=== PATIENT | male | born 1965 | race Two or more races ===

== ENCOUNTER 2023-05-04 10:20 | Emergency (ER) | payer MEDICARE, MEDICAID, SELFPAY ==
[2023-05-04 10:55] VITALS: BP 131/86; PULSE 95; RESP 16; TEMP 36.6; O2SAT 93; BMI 48.3
[2023-05-04 11:16] LABS: MANUAL DIFF FLAG NO
[2023-05-04 11:20] LABS: Basophils Percent Auto 0.3 % (0-2); Eosinophils Absolute Auto 0.3 X10*3/uL (0.0-0.4); Eosinophils Percent Auto 2.6 % (0-4); Hematocrit 47.5 % (42.0-52.0); Hemoglobin 16.3 g/dl (14.0-18.0); Imm Gran Abs Auto 0.05 X10*3/uL (0.00-0.03); Imm Gran Pct Auto 0.4 % (0.0-0.4); Lymphocytes Absolute Auto 1.6 X10*3/uL (1.2-4.9); Lymphocytes Percent Auto 13.4 % (20-40); Mean Corpuscular HGB Conc 34.3 g/dl (31.0-36.0); Mean Corpuscular Hemoglobin 29.5 pg (27.0-33.0); Mean Corpuscular Volume 85.9 fL (80.0-98.0); Mean Platelet Volume 11.7 fL (9.4-12.4); Monocytes Percent Auto 8.7 % (2-11); Neutrophils Absolute Auto 8.9 x10*3/uL (2.0-8.3); Neutrophils Percent Auto 74.6 % (45-73); Platelet Count 213 X10*3/uL (160-400); Red Blood Count 5.53 X10*6/uL (4.60-5.80); Red Cell Distribution Width 12.2 % (11.0-16.0); White Blood Count 11.9 X10*3/uL (4.8-10.8)
[2023-05-04 11:31] LABS: Alanine Aminotransferase 43 U/L (0-40); Albumin Level 4.1 g/dL (3.5-5.0); Alkaline Phosphatase 136 U/L (39-117); Anion Gap 10 (12-20); Aspartate Amino Transferase 29 U/L (5-37); Bilirubin Total 0.8 mg/dL (0.0-1.0); Blood Urea Nitrogen 11 mg/dL (9-16); Calcium 9.5 mg/dL (8.4-10.2); Carbon Dioxide 27 mmol/L (22-29); Chloride 102 mmol/L (96-108); Creatinine Clr Calc Pharmacy 119.8; Estimated Glomerular Filt Rate > 60; Glucose Random 200 mg/dL (60-115); Potassium 3.8 mmol/L (3.3-5.1); Sodium 135 mmol/L (135-145); Total Protein 8.4 g/dL (6.5-8.0)
--- NOTE | 2023-05-04 14:23 | PC.NURSE ---
Pt reports he spoke to his PCP and feels safe/comfortable going home without being seen, does not want to wait. Pt instructed to follow up or come back if he feels worse.
== END 2023-05-04 14:22 | disposition left against medical advice (07) ==
PROVIDERS: Emergency Provider Emergency Medicine; PCP Internal Medicine
DX: L72.9 Follicular cyst of the skin and subcutaneous tissue, unspecified (principal)
CPT/HCPCS: 36415; 80053; 85025; 99281; 99283

== ENCOUNTER 2023-05-26 12:23 | Emergency (ER) | payer MEDICARE, MEDICAID, SELFPAY ==
[2023-05-26 12:35] VITALS: BP 128/88; PULSE 87; RESP 20; TEMP 36.9; O2SAT 95; BMI 47.3
--- NOTE | 2023-05-26 12:35 | ED_ITS ---
HPI - Back Pain/Injury General Chief Complaint: Back Pain/Injury Stated Complaint: Back pain Time Seen by Provider: 05/26/23 12:42 Source: patient Mode of arrival: ambulatory Limitations: no limitations History of Present Illness HPI Narrative: 58 yo male with history of DM, gout, HTN, HLD here with complaints of lower back pain worsened with movement x 4 days. No injury or fall. Has not tried taking any home medications. No radiation of pain into the legs. No numbness/tingling in the legs. No numbness of groin. No bowel/bladder incontinence. No fevers. Has history of previous back injuries. Has not seen his PCP Related Data Previous Rx's ?Medication ?Instructions ?Recorded cyclobenzaprine 10 mg tablet 10 mg PO TID PRN muscle spasm #15 05/26/23 tabs lidocaine 5 % topical patch 1 patch topical DAILY #15 ea 05/26/23 (Lidoderm) Allergies Allergy/AdvReac Type Severity Reaction Status Date / Time No Known Allergies Allergy Verified 05/26/23 12:39 Review of Systems Review of Systems: Yes all other systems are reviewed and are negative Constitutional: Constitutional: Reports no additional constitutional complaints, Denies body ache(s), Denies chills, Denies fever(s), Denies headache(s) and Denies weakness Eyes: Eyes: Reports no additional eye complaints and Denies change in vision ENT: Reports system reviewed and no additional complaints, except as documented, Denies dizziness, Denies headache(s), Denies nasal congestion, Denies nasal discharge and Denies neck pain Cardiovascular: Cardiovascular: Reports no additional cardiovascular complaints, Denies chest pain, Denies leg edema and Denies dyspnea Respiratory: Respiratory: Reports no additional respiratory complaints, Denies cough and Denies dyspnea Gastrointestinal: Gastrointestinal: Reports no additional gastrointestinal complaints, Denies abdominal pain, Denies diarrhea, Denies nausea and Denies vomiting Genitourinary: Genitourinary: Denies urinary incontinence Musculoskeletal: Musculoskeletal: Reports no additional musculoskeletal complaints, Reports back pain, Denies arthralgias, Denies joint swelling, Denies neck pain, Denies numbness and Denies tingling Integumentary/Breasts: Skin/Breast: Reports system reviewed and no additional complaints, except as docu and Denies rash Neurologic: Reports system reviewed and no additional complaints, except as documented, Denies dizziness, Denies headache(s), Denies numbness, Denies tingling and Denies weakness [facility] Past Medical History Attestation statement: The following information was validated with the patient. Source: old records reviewed and nursing notes reviewed Physical Exam Vital Signs: Vital Signs: Last Vital Signs Temp 98.4 F 05/26/23 12:35 Pulse 87 05/26/23 12:35 Resp 20 05/26/23 12:35 BP 128/88 05/26/23 12:35 Pulse Ox 95 05/26/23 12:35 O2 Del Method Room Air 05/26/23 12:35 BMI result Body Mass Index 47.3 Const: General: cooperative, healthy appearing, comfortable and no acute distress Orientation/consciousness: patient oriented x3 Limitations: no limitations HEENT: Head: Yes normal to inspection Ears: hearing grossly normal bilaterally General nose exam: Normal external nose present Face and sinus: Yes normal facial exam Mouth: Normal oral and palatal mucosa present Throat: Yes posterior oropharynx normal Eyes: General: appearance normal, both eyes and all related structures Pupils: Equal, round and reactive pupils present Neck: Neck: Yes normal visual inspection Chest: Chest palpation & inspection: normal inspection of the chest Resp: Effort & Inspection: normal respiratory effort Auscultation: clear to auscultation bilaterally Cardio: Rate: regular rate Rhythm: regular rhythm Peripheral pulses: Per ipheral pulses 2+ throughout GI: Inspection: Yes normal to inspection Palpation (GI): Soft to palpation and nontender Auscultation: normal bowel sounds Back/Spine/Pelvis: Thoracic/Lumbar Spine: thoracic and lumbar spine normal to inspection Skin: General skin exam: no rashes or lesions noted Neuro: General: patient oriented x3, moves all extremities, no focal motor deficits and normal sensation to monofilament Cranial nerves: Yes Equal, round and reactive pupils present Cognition (Neuro): normal cognition Gait exam (Neuro): Normal gait present Motor exam (neuro): 5/5 motor strength present throughout Sensory Exam: Normal double simultaneous stimulation for sensation Deep tendon reflexes (DTR's): Right patellar reflex intensity grade: 2+ and Left patellar reflex intensity grade: 2+ Extrem: General: Yes normal to inspection, Yes no pedal edema and Yes no calf tenderness Medical Decision Making Medical Decision Making MDM Narrative: 58 yo male with history of DM, gout, HTN, HLD here with complaints of lower back pain worsened with movement x 4 days. No injury or fall. Has not tried taking any home medications. No radiation of pain into the legs. No numbness/tingling in the legs. No numbness of groin. No bowel/bladder incontinence. No fevers. Has history of previous back injuries. Has not seen his PCP Normal neuro exam with no focal deficits or red flag symptoms Received Toradol here in the ER. Has ibuprofen 600mg at home. Recommend he take this in addition to flexeril, lidoderm and f/u with his PCP outpatient. Reviewed worrisome signs and symptoms of when to return to the emergency room. Comfortable plan for discharge home Differential Diagnosis Differential Diagnoses: The differential diagnosis associated with the presentation includes No reports of injury or trauma to suggest fracture No history of immunocompromised state, IV drug abuse or red flag symptoms or neurological deficits to suggest cord compression, cauda equina, malignancy, epidural abscess Gradual onset low suspicion for ACS, AAA, pyelo, renal colic Admission/Observation Consideration of admission/observation: Escalation of care including admission/observation considered No neurological deficits or red flag symptoms suggest need for emergent MRI and/or neurosurgery consultation and transfer or hospitalization Tests considered The following testing was considered but not selected: No neurological deficits or red flag symptoms suggest need for emergent MRI Prescription Management I considered prescription management with: Pain Medication Discharge Plan Discharge Clinical Impression: Back pain Patient Disposition: Home, Self-Care Instructions: Back Pain (ED) Additional Instructions: Ibuprofen which you have at home every 6 hours as needed Heat or ice to the area Gentle stretching No heavy lifting or bending Follow-up with your primary care doctor Prescriptions: New cyclobenzaprine 10 mg tablet 10 mg PO TID PRN (Reason: muscle spasm) Qty: 15 0RF lidocaine [Lidoderm] 5 % adhesive patch,medicated 1 patch topical DAILY Qty: 15 0RF Rx Instructions: leave on most painful area for up to 12 hrs Referrals: Eliezer Pastrana III, MD [Primary Care Provider] - 1 week Print Language: Senegalese
[2023-05-26] MEDS: Ketorolac Tromethamine 30 MG/ML VIAL IM (12:45)
[2023-05-26 12:52] VITALS: BP 128/88; PULSE 87; RESP 20; TEMP 36.9; O2SAT 95
--- NOTE | 2023-05-26 12:52 | PC.NURSE ---
pt medicated per APR for 10 R lower back pain.
== END 2023-05-26 12:58 | disposition home or self-care (01) ==
LOC: HO.ED 12:52
PROVIDERS: Emergency Provider Emergency Medicine; PCP Internal Medicine
DX: M54.50 Low back pain, unspecified (principal); E11.9 Type 2 diabetes mellitus without complications; I10 Essential (primary) hypertension; E78.5 Hyperlipidemia, unspecified
CPT/HCPCS: 96372; 99283; 99284; J1885

== ENCOUNTER 2023-07-09 10:27 | Emergency (ER) | payer MEDICARE, MEDICAID, SELFPAY ==
[2023-07-09 11:13] VITALS: BP 115/77; PULSE 84; RESP 20; TEMP 36.9; O2SAT 95; BMI 47.5
--- NOTE | 2023-07-09 14:10 | ED_ITS ---
HPI - Back Pain/Injury General Chief Complaint: Back Pain/Injury Stated Complaint: back pain Time Seen by Provider: 07/09/23 13:53 Source: patient Mode of arrival: ambulatory Limitations: no limitations History of Present Illness ED Provider: Zander Juarez PA-C HPI Narrative: 58 yo male with history of morbid obesity presents to the ER for evaluation of lower back pain for the last 4 days after he bent down to poultry picker a heavy object on the ground. He thinks he pulled a muscle. The pain is worse w/ movement, vicente when he tries to get up out of bed. no radiation of the pain, it is located across his entire lower back and waxes/wanes w/ movement. no urinary symptoms. hx similar presentation that improved with a shot from the ER. MD elicited complaint: back pain and back injury Pertinent past history: prior back pain Onset (ago): day(s) (4) Timing: intermittent Severity: moderate Similar Symptoms Previously: Yes Quality: aching and spasming Location: right lower back and left lower back Radiation: none Exacerbating factors: movement Relieving factors: immobilization and supine Context: while lifting, turning/twisting and bending Associated symptoms: denies other symptoms Work related injury: No Related Data Previous Rx's ?Medication ?Instructions ?Recorded cyclobenzaprine 10 mg tablet 10 mg PO TID PRN muscle spasm #15 05/26/23 tabs lidocaine 5 % topical patch 1 patch topical DAILY #15 ea 05/26/23 (Lidoderm) cyclobenzaprine 10 mg tablet 10 mg PO TID PRN muscle spasm #10 07/09/23 tabs ibuprofen 600 mg tablet 600 mg PO Q8H PRN pain #14 tabs 07/09/23 lidocaine 5 % topical patch 1 patch topical DAILY #15 ea 07/09/23 Allergies Allergy/AdvReac Type Severity Reaction Status Date / Time No Known Allergies Allergy Verified 07/09/23 11:14 Review of Systems Review of Systems: Yes all other systems are reviewed and are negative [facility] Social History Social History Advance Directives: No Advance Directives Information Provided: No Physical Exam Vital Signs: Vital Signs: Last Vital Signs Temp 98.1 F 07/09/23 15:08 Pulse 86 07/09/23 15:08 Resp 18 07/09/23 15:08 BP 120/65 07/09/23 15:08 Pulse Ox 94 07/09/23 15:08 O2 Del Method Room Air 07/09/23 15:08 BMI result Body Mass Index 47.5 Appearance: Alert. Oriented X3. No acute distress. HEENT: normal external inspection Neck: Normal inspection. Neck supple. CVS: Normal heart rate and rhythm. Pulses normal. Respiratory: No respiratory distress. Breath sounds normal. Abdomen: Obese, soft and nontender. +BS x4 Back: normal inspection. tender soft tissues of the middle and lower lumbar area with palpable spasm. no midline tenderness. no cva tenderness Skin: Skin warm and dry. Normal skin color. Normal skin turgor. No rashes. Extremities: No lower extremity edema. No joint swelling. Neuro/psych: Oriented X 3. No motor deficit. No sensory deficit. CN II-XII intact. Normal speech and cognition. steady gait. Medications Administered Discontinued Medications Generic Name Dose Route Start Last Admin Trade Name Freq PRN Reason Stop Dose Admin Ketorolac Tromethamine 30 mg 07/09/23 14:50 07/09/23 15:00 Ketorolac Tromethamine 30 Mg/Ml Vial IM 07/09/23 14:51 30 mg ONCE ONE Administration Medical Decision Making Medical Decision Making MDM Narrative: 58 yo male w/ hx morbid obesity, prior msk back pain presenting with LMP after heavy lifting. no radiation into the legs. low suspicion for disc herniation or cord compression. no red flag sxs of LBP. no need for x-ray today, no trauma. will treat for muscle strain/spasm and have him f/u with PCP as this is a recur rent issue for him. stable for d/c home. patient agree w/ plan and all questions were answered. Differential Diagnosis Differential Diagnoses: The differential diagnosis associated with the presentation includes Inflammatory disorders, malignancy, trauma, osteoporosis, nerve root compression, radiculopathy, plexopathy, degenerative disc disease, disc herniation, spinal stenosis, sacroiliac joint dysfunction, facet joint injury, and less likely infection?like abscess or diskitis External Record Review External record reviewed: Outpatient record and Prior outpatient labs Tests considered The following testing was considered but not selected: xray lumbar spine considered, no midline tenderness or trauma Prescription Management I considered prescription management with: Pain Medication Chronic Conditions Patient?s care impacted by: Other (morbid obesity) Critical Care Time Critical Care Time Critical Care Time: No Discharge Plan Discharge Clinical Impression: Strain of lumbar region Qualifiers: Encounter type: initial encounter Qualified Code(s): S39.012A - Strain of muscle, fascia and tendon of lower back, initial encounter Patient Disposition: Home, Self-Care Instructions: Low Back Strain (ED), Lower Back Exercises (ED) Additional Instructions: Your pain is most likely due to muscle strain and spasm. No bending, lifting or twisting. Use ice several times per day for 20 minutes at a time for the next 48 hours and then change to heat. Take medications as prescribed to help with pain and discomfort. Follow up with your Primary Care Doctor this week. If your pain worsens, if you develop new numbness, tingling, weakness, loss of function or incontinence call 911 or come back to the ER right away for evaluation. Prescriptions: New cyclobenzaprine 10 mg tablet 10 mg PO TID PRN (Reason: muscle spasm) Qty: 10 0RF ibuprofen 600 mg tablet 600 mg PO Q8H PRN (Reason: pain) Qty: 14 0RF lidocaine 5 % adhesive patch,medicated 1 patch topical DAILY Qty: 15 0RF Rx Instructions: leave on most painful area for up to 12 hrs No Action cyclobenzaprine 10 mg tablet 10 mg PO TID PRN (Reason: muscle spasm) Qty: 15 0RF lidocaine [Lidoderm] 5 % adhesive patch,medicated 1 patch topical DAILY Qty: 15 0RF Rx Instructions: leave on most painful area for up to 12 hrs Referrals: Eliezer Pastrana III, MD [Primary Care Provider] - Interventions: ED Discharge Assessment Last Done: 07/09/23 15:08 Discharge Date/Time: 07/09/23 15:09 Print Language: Jordanian
[2023-07-09 14:54] VITALS: BP 120/65; PULSE 86; RESP 18; TEMP 36.7; O2SAT 94
[2023-07-09] MEDS: Ketorolac Tromethamine 30 MG/ML VIAL IM (15:00)
[2023-07-09 15:08] VITALS: BP 120/65; PULSE 86; RESP 18; TEMP 36.7; O2SAT 94
== END 2023-07-09 15:09 | disposition home or self-care (01) ==
PROVIDERS: Emergency Provider Emergency Medicine; PCP Internal Medicine
DX: S39.012A Strain of muscle, fascia and tendon of lower back, initial encounter (principal); X50.0XXA Overexertion from strenuous movement or load, initial encounter; Y93.9 Activity, unspecified; Y92.9 Unspecified place or not applicable; Y99.9 Unspecified external cause status
CPT/HCPCS: 96372; 99283; 99284; J1885

== ENCOUNTER 2023-07-26 10:18 | Emergency (ER) | payer MEDICARE, SELFPAY ==
--- NOTE | ~2023-07-26 | CT_ITS ---
EXAMINATION: CT ORBIT WITH CONTRAST CLINICAL INFORMATION: Swelling. Assess for cellulitis. COMPARISON: There are no prior studies available for comparison. TECHNIQUE: CT scan of the orbits was obtained in the axial plane following the intravenous administration of 85 mL Omnipaque 350. The data was postprocessed at the x ray technologist workstation with generation of coronal and sagittal reformatted images. DLP: 296 mGy-cm. FINDINGS: Both lacrimal glands are prominent, larger on the right. No discrete fluid collections are noted on uterine side. There is some mass effect on the bilateral lateral rectus muscles anteriorly. The globes are symmetric. The lenses are in normal position. There is bilateral proptosis The other extraocular muscles are symmetric and normal in appearance. The retrobulbar fat is maintained. The optic nerve sheath complexes appear unremarkable. There is no abnormal enhancement noted following intravenous contrast administration. The superior ophthalmic veins are normal in appearance. The cavernous sinuses, Meckel's caves, the optic chiasm and retrochiasmatic optic tracts are unremarkable. The pituitary fossa appears normal. The parotid glands are moderately prominent bilaterally. The mastoid air cells and the paranasal sinuses are well-aerated. CT/CT orbit BI w IV con IMPRESSION: 1. There is prominence of the lacrimal glands bilaterally, larger on the right. There is no discrete fluid collection. There is some mass effect on the lateral rectus muscles. The parotid glands are prominent bilaterally. There is bilateral proptosis. These findings are nonspecific, but may be consistent with inflammatory changes such as Sjogren's syndrome or sarcoidosis. Lymphoproliferative changes cannot be excluded. 2. The globes and the retrobulbar structures appear normal. 3. The visualized intracranial structures are unremarkable.
[2023-07-26 10:49] VITALS: BP 129/80; PULSE 100; RESP 16; TEMP 36; O2SAT 95; BMI 47.3
[2023-07-26] MEDS: Fluorescein Sodium STRIP 1 STRIP EYE-BOTH (11:15)
[2023-07-26] MEDS: Tetracaine HCl/PF 0.5% Oph Sol 4 ML DROPS 1 DROP EYE-BOTH (11:15)
--- NOTE | 2023-07-26 11:16 | PC.NURSE ---
visual acuity performed, provider to administer medications
[2023-07-26 12:00] VITALS: BP 138/78; PULSE 92; RESP 14; TEMP 36.4; O2SAT 93
[2023-07-26] MEDS: 0.9 % Sodium Chloride 1,000 ML 999 ML IV (12:06)
[2023-07-26 12:11] LABS: MANUAL DIFF FLAG NO
[2023-07-26 12:12] LABS: Basophils Percent Auto 0.3 % (0-2); Eosinophils Absolute Auto 0.4 X10*3/uL (0.0-0.4); Eosinophils Percent Auto 3.1 % (0-4); Hematocrit 42.4 % (42.0-52.0); Hemoglobin 14.1 g/dl (14.0-18.0); Imm Gran Abs Auto 0.07 X10*3/uL (0.00-0.03); Imm Gran Pct Auto 0.6 % (0.0-0.4); Lymphocytes Absolute Auto 1.4 X10*3/uL (1.2-4.9); Mean Corpuscular HGB Conc 33.3 g/dl (31.0-36.0); Mean Corpuscular Hemoglobin 28.5 pg (27.0-33.0); Mean Corpuscular Volume 85.7 fL (80.0-98.0); Mean Platelet Volume 11.5 fL (9.4-12.4); Monocytes Absolute Auto 1.1 X10*3/uL (0.1-1.2); Monocytes Percent Auto 8.5 % (2-11); Neutrophils Absolute Auto 9.7 x10*3/uL (2.0-8.3); Neutrophils Percent Auto 76.5 % (45-73); Platelet Count 275 X10*3/uL (160-400); Red Blood Count 4.95 X10*6/uL (4.60-5.80); White Blood Count 12.7 X10*3/uL (4.8-10.8)
--- NOTE | 2023-07-26 12:15 | PC.NURSE ---
patient a&ox3, iv inserted, labs drawn, IVF hung per order, pt to go to CT scan, will continue to monitor
[2023-07-26 12:41] LABS: Alanine Aminotransferase 27 U/L (0-40); Albumin Level 3.6 g/dL (3.5-5.0); Alkaline Phosphatase 122 U/L (39-117); Anion Gap 13 (12-20); Aspartate Amino Transferase 23 U/L (5-37); Bilirubin Total 0.4 mg/dL (0.0-1.0); Blood Urea Nitrogen 18 mg/dL (9-16); Calcium 9.5 mg/dL (8.4-10.2); Carbon Dioxide 25 mmol/L (22-29); Chloride 102 mmol/L (96-108); Creatinine Clr Calc Pharmacy 139.7; Estimated Glomerular Filt Rate > 60; Glucose Random 194 mg/dL (60-115); Magnesium 1.9 mg/dL (1.6-2.6); Sodium 136 mmol/L (135-145); Total Protein 7.7 g/dL (6.5-8.0)
[2023-07-26 13:00] LABS: TSH reflex Free T4 1.02 uIU/mL (0.32-4.0)
[2023-07-26] MEDS: iohexoL 350 MG/ML 100 ML INFUS..BTL IV (13:15)
[2023-07-26 14:00] VITALS: BP 145/81; PULSE 95; TEMP 36.7; O2SAT 93
--- NOTE | 2023-07-26 14:15 | ED.EYEPROB ---
HPI - Eye Problem General Chief complaint: Eye Problems Stated complaint: Swelling both eyes Time Seen by Provider: 07/26/23 11:07 Source: patient Mode of arrival: ambulatory Limitations: no limitations History of Present Illness ED Provider: CONCHA LOCO PA-C HPI Narrative: 58-year-old male with pmhx significant for hypertension, type 2 diabetes controlled with medication, and GERD presents to the ED today for evaluation of bilateral eye redness/swelling x4 weeks. Patient is saw his PCP approximately 1 month ago for this and was prescribed azelastine and erythromycin x1 week which he has been using for 4 weeks now. Reports increasing redness and burning sensation to eyes. Reports discomfort however no pain. He does not wear corrective lenses. He reports following up with his PCP yesterday who advised he come to the ED to rule out orbital cellulitis. Denies trauma or injury to the eyes. Denies foreign body sensation however does admit to gritty feeling. Denies fevers, chills, vision changes, pain with eye movements, eye pain. Related Data Previous Rx's ?Medication ?Instructions ?Recorded cyclobenzaprine 10 mg tablet 10 mg PO TID PRN muscle spasm #15 05/26/23 tabs lidocaine 5 % topical patch 1 patch topical DAILY #15 ea 05/26/23 (Lidoderm) cyclobenzaprine 10 mg tablet 10 mg PO TID PRN muscle spasm #10 07/09/23 tabs ibuprofen 600 mg tablet 600 mg PO Q8H PRN pain #14 tabs 07/09/23 lidocaine 5 % topical patch 1 patch topical DAILY #15 ea 07/09/23 prednisone 20 mg tablet 20 mg PO DAILY 5 days #5 tabs 07/26/23 Allergies Allergy/AdvReac Type Severity Reaction Status Date / Time No Known Allergies Allergy Verified 07/26/23 10:53 Review of Systems Review of Systems: Constitutional: No fever, chills, fatigue, night sweats, weight changes ENT/Mouth: No ear pain, hearing loss, nasal congestion, sinus pain, rhinorrhea, sore throat Eyes: No eye pain, vision changes, discharge, +eye redness, +eye swelling Cardio: No chest pain, palpitations, SPENCER, orthopnea, peripheral edema Pulm: No SOB, cough, sputum, wheezing, dyspnea, hemoptysis GI: No nausea, vomiting, hematemesis, abdominal pain, diarrhea, constipation, hematochezia, melena : No irregular bleeding, dysuria, frequency, urgency, hesitancy, hematuria, flank pain, urinary flow changes, urinary incontinence or retention MSK: No back pain, neck pain, joint pain, myalgias Skin: No lesions, rashes Neuro: No weakness, numbness, paresthesias, LOC, dizziness, headache Psych: No anxiety/panic, depression, SI/HI, AH/VH All other systems reviewed and are negative. [facility], [facility] Past Medical History Attestation statement: The following information was validated with the patient. Source: old records reviewed and nursing notes reviewed Social History Social History Advance Directives: No Advance Directives Information Provided: Yes Physical Exam Vital Signs: Vital Signs: Last Vital Signs Temp 98.0 F 07/26/23 15:27 Pulse 94 07/26/23 15:27 Resp 16 07/26/23 15:27 BP 141/76 H 07/26/23 15:27 Pulse Ox 94 07/26/23 15:27 O2 Del Method Room Air 07/26/23 15:27 BMI result Body Mass Index 47.3 Vital signs stable Const: General: cooperative, healthy appearing, comfortable and no acute distress Nutritional Appearance: obese Orientation/consciousness: patient oriented x3 Limitations: no limitations HEENT: Head: Yes normal to inspection Eyes: Other: + please refer to photos below. Patient does not wear corrective lenses. Visual acuity OD 20/50. Visual acuity OS 20/70. Bilateral 20/50. + injected conjunctiva bilaterally. Excessive tearing. No obvious foreign body or abrasion. No hyphema. Felicia sign. On tetracaine/fluorescein examination, no reuptake to indicate abrasion or foreign body. + IOP OD 16. IOP OS 16. Mild bilateral proptosis. Slight discomfort with EOMs intact. Neck: Neck: Yes normal visual inspection, Yes full ROM, Yes no lymphadenopathy and Yes no meningeal signs Resp: Effort & Inspection: normal respiratory effort and able to speak in complete sentences Auscultation: clear to auscultation bilaterally Cardio: Rate: regular rate Rhythm: regular rhythm Skin: General skin exam: no rashes or lesions noted Neuro: General: patient oriented x3, gait normal, no meningeal signs and no focal motor deficits Course Course Course Narrative: 1415-- CBC with slight leukocytosis to 12.7, no left shift. No anemia. H&H stable. Chemistry without acute electrolyte abnormality requiring intervention. BUN slightly elevated at 18, creatinine WNL. Patient receiving IV fluids. Random glucose 194 which is around patient's baseline when compared to priors. Alk phos elevated to 122, baseline when compared to priors. TSH WNL. > CT orbit pending 1450-- CT orbits does not demonstrate evidence of pre-orbital or orbital cellulitis. it does show findings that may be consistent with possible inflammatory process such as sjogrens vs sarcoidosis. I did discuss these findings with my attending Dr. Lopez. Patient likely having rebound reaction. Will cover for possible inflammatory conditions with 5 day course of prednisone. Low dose sent to pharmacy as patient has diabetes. i advised him to monitor his blood sugar closely at home while taking this medication as this can increased glucose. he verbalizes understanding. i advised patient to stop the erythromycin and azelastine eye drops as these are likely worsening his symptoms. will provide patient referral to ophthalmology for follow up. Patient has remained stable throughout ED visit today. Discussed worrisome signs and symptoms and when to return to the ED. All questions answered at this time. Patient is agreeable with disposition and stable for discharge. Medications Administered Discontinued Medications Generic Name Dose Route Start Last Admin Trade Name Ludmila PRN Reason Stop Dose Admin Fluorescein Sodium 1 strip 07/26/23 11:07 07/26/23 11:15 Fluorescein Sodium Strip EYE-BOTH 07/26/23 11:08 1 strip ONCE ONE Administration Sodium Chloride 1,000 mls @ 999 mls/hr 07/26/23 11:45 07/26/23 13:07 Ns IV 07/26/23 12:45 Infused .Q1H1M FAHAD Infusion Iohexol 100 ml 07/26/23 13:15 07/26/23 13:15 Iohexol 350 Mg/Ml 100 Ml Infus..Btl IV 07/26/23 13:16 85 ml ONCE ONE Administration Tetracaine HCl 1 drop 07/26/23 11:07 07/26/23 11:15 Tetracaine Hcl/Pf 0.5% Oph Mary 4 Ml Drops EYE-BOTH 07/26/23 11:08 1 drop ONCE ONE Administration Medical Decision Making Medical Decision Making MDM Narrative: 58-year-old male with pmhx significant for hypertension, type 2 diabetes controlled with medication, and GERD presents to the ED today for evaluation of bilateral eye redness/swelling x4 weeks. Vital signs stable. Afebrile. Patient does not wear corrective lenses. Visual acuity OD 20/50. Visual acuity OS 20/70. Bilateral 20/50. injected conjunctiva bilaterally. Excessive tearing. No obvious foreign body or abrasion. No hyphema. Felicia sign. On tetracaine/fluorescein examination, no re-uptake to indicate abrasion or foreign body. IOP OD 16. IOP OS 16. Mild bilateral proptosis. Slight discomfort with EOMs intact. no entrapment. noted swelling to bilateral upper eye lids. no overlying skin changes. Differential diagnosis includes viral vs allergic conjunctivitis, bacterial conjunctivitis, rebound conjunctivitis. lower suspicion for corneal abrasion, corneal ulcer, corneal fb. unlikely glaucoma, globe rupture, blow out fracture, pre-orbital/ orbital cellulitls. Plan for labs, CT, re-evaluation. Differential Diagnosis Differential Diagnoses: The differential diagnosis associated with the presentation includes as above Admission/Observation Not indicated. Lab Data MDM Lab Attestation statement: I reviewed the patient's lab results. as above. 07/26/23 12:03 07/26/23 12:03 Labs: Lab Results 07/26/23 Range/Units 12:03 WBC 12.7 H (4.8-10.8) X10*3/uL RBC 4.95 (4.60-5.80) X10*6/uL Hgb 14.1 (14.0-18.0) g/dl Hct 42.4 (42.0-52.0) % MCV 85.7 (80.0-98.0) fL MCH 28.5 (27.0-33.0) pg MCHC 33.3 (31.0-36.0) g/dl RDW 12.0 (11.0-16.0) % Plt Count 275 D (160-400) X10*3/uL MPV 11.5 (9.4-12.4) fL Immature Gran % (Auto) 0.6 H (0.0-0.4) % Neut % (Auto) 76.5 H (45-73) % Lymph % (Auto) 11.0 L (20-40) % [place] % (Auto) 8.5 (2-11) % Eos % (Auto) 3.1 (0-4) % Baso % (Auto) 0.3 (0-2) % Lymph # (Auto) 1.4 (1.2-4.9) X10*3/uL [place] # (Auto) 1.1 (0.1-1.2) X10*3/uL Eos # (Auto) 0.4 (0.0-0.4) X10*3/uL Baso # (Auto) 0.0 (0.0-0.2) X10*3/uL Abs Immat Gran (auto) 0.07 H (0.00-0.03) X10*3/uL Absolute Neuts (auto) 9.7 H (2.0-8.3) x10*3/uL Absolute Nucleated RBC 0.000 (0.0-0.012) X10*3/uL Nucleated RBC % (auto) 0.0 (0.0-0.2) /100WBC Sodium 136 (135-145) mmol/L Potassium 4.0 (3.3-5.1) mmol/L Chloride 102 (96-108) mmol/L Carbon Dioxide 25 (22-29) mmol/L Anion Gap 13 (12-20) BUN 18 H (9-16) mg/dL Creatinine 0.88 (0.5-1.4) mg/dL Estim Creat Clear Calc 139.7 Estimated GFR > 60 Random Glucose 194 H (60-115) mg/dL Calcium 9.5 (8.4-10.2) mg/dL Magnesium 1.9 (1.6-2.6) mg/dL Total Bilirubin 0.4 (0.0-1.0) mg/dL AST 23 (5-37) U/L ALT 27 (0-40) U/L Alkaline Phosphatase 122 H (39-117) U/L Total Protein 7.7 (6.5-8.0) g/dL Albumin 3.6 (3.5-5.0) g/dL TSH 1.02 (0.32-4.0) uIU/mL Independent Interpretation I performed an independent interpretation of an: CT Scan Interpretation: CT scan orbit showing enlarged lacrimal glands, agree with radiologist's interpretation Radiology Impression Discussion of test interpretation with radiology: I have reviewed the radiologist's reading. Radiologist Impression: EXAMINATION: CT ORBIT WITH CONTRAST CLINICAL INFORMATION: Swelling. Assess for cellulitis. COMPARISON: There are no prior studies available for comparison. TECHNIQUE: CT scan of the orbits was obtained in the axial plane following the intravenous administration of 85 mL Omnipaque 350. The data was postprocessed at the certified neurodiagnostic technologist workstation with generation of coronal and sagittal reformatted images. DLP: 296 mGy-cm. FINDINGS: Both lacrimal glands are prominent, larger on the right. No discrete fluid collections are noted on uterine side. There is some mass effect on the bilateral lateral rectus muscles anteriorly. The globes are symmetric. The lenses are in normal position. There is bilateral proptosis The other extraocular muscles are symmetric and normal in appearance. The retrobulbar fat is maintained. The optic nerve sheath complexes appear unremarkable. There is no abnormal enhancement noted following intravenous contrast administration. The superior ophthalmic veins are normal in appearance. The cavernous sinuses, Meckel's caves, the optic chiasm and retrochiasmatic optic tracts are unremarkable. The pituitary fossa appears normal. The parotid glands are moderately prominent bilaterally. The mastoid air cells and the paranasal sinuses are well-aerated. CT/CT orbit BI w IV con IMPRESSION: 1. There is prominence of the lacrimal glands bilaterally, larger on the right. There is no discrete fluid collection. There is some mass effect on the lateral rectus muscles. The parotid glands are prominent bilaterally. There is bilateral proptosis. These findings are nonspecific, but may be consistent with inflammatory changes such as Sjogren's syndrome or sarcoidosis. Lymphoproliferative changes cannot be excluded. 2. The globes and the retrobulbar structures appear normal. 3. The visualized intracranial structures are unremarkable. External Record Review External record reviewed: Inpatient record Prescription Management I considered prescription management with: Other (Prednisone) Chronic Conditions Patient?s care impacted by: Diabetes Social Determinants Patient?s care significantly limited by Social Determinants of Health including: Other Social Determinant of Health Critical Care Time Critical Care Time Critical Care Time: No Discharge Plan Discharge Clinical Impression: Conjunctivitis Patient Disposition: Home, Self-Care Additional Instructions: Your lab work today is reassuring. All CT scan findings were discussed with you. There is no sign of orbital infection. STOP USING THE ERYTHROMYCIN AND AZELASTINE DROPS. Prednisone is a steroid that has been sent to your pharmacy. Take this over the next 5 days as prescribed. You are diabetic. Please monitor your sugars at home. If you find that your sugars are becoming more elevated, please discontinue prednisone use. Follow up with your PCP as scheduled. You have also been provided with an geodesist (eye doctor). Please call them to make an appointment. They will not call you. Return with new or worsening symptoms. In the case of an emergency call 911. Prescriptions: New prednisone 20 mg tablet 20 mg PO DAILY 5 Days Qty: 5 0RF No Action cyclobenzaprine 10 mg tablet 10 mg PO TID PRN (Reason: muscle spasm) Qty: 15 0RF lidocaine [Lidoderm] 5 % adhesive patch,medicated 1 patch topical DAILY Qty: 15 0RF Rx Instructions: leave on most painful area for up to 12 hrs cyclobenzaprine 10 mg tablet 10 mg PO TID PRN (Reason: muscle spasm) Qty: 10 0RF ibuprofen 600 mg tablet 600 mg PO Q8H PRN (Reason: pain) Qty: 14 0RF lidocaine 5 % adhesive patch,medicated 1 patch topical DAILY Qty: 15 0RF Rx Instructions: leave on most painful area for up to 12 hrs Referrals: Eliezer Pastrana III, MD [Primary Care Provider] - Eddie Bridges [Physician] - Interventions: ED Discharge Assessment Last Done: 07/26/23 15:27 Discharge Date/Time: 07/26/23 15:28 Print Language: Amharic
[2023-07-26 15:27] VITALS: BP 141/76; PULSE 94; RESP 16; TEMP 36.7; O2SAT 94
== END 2023-07-26 15:28 | disposition home or self-care (01) ==
PROVIDERS: Physician Assistant Medical; Emergency Provider Emergency Medicine; PCP Internal Medicine
DX: H10.9 Unspecified conjunctivitis (principal); H57.13 Ocular pain, bilateral; E11.9 Type 2 diabetes mellitus without complications; I10 Essential (primary) hypertension; Z79.899 Other long term (current) drug therapy
CPT/HCPCS: 36415; 70481; 80053; 83735; 84443; 85025; 96360; 99284; Q9967

== ENCOUNTER 2023-08-05 09:59 | Emergency (ER) | payer MEDICARE, SELFPAY ==
[2023-08-05 10:15] VITALS: BP 143/86; PULSE 93; RESP 18; TEMP 36.9; O2SAT 98; BMI 48.0
--- NOTE | 2023-08-05 10:22 | ED_ITS ---
HPI - General Adult General Chief complaint: Allergic Reaction Stated complaint: Swollen eyes Time Seen by Provider: 08/05/23 10:21 Source: patient and RN notes reviewed Mode of arrival: ambulatory Limitations: no limitations History of Present Illness ED Provider: Rajani Cardona PA-C HPI narrative: This is a 58-year-old male, with a past medical history of hypertension, type 2 diabetes, and GERD, who presents to the emergency department with complaints of bilateral eyelid swelling. Patient was seen here on July 25 for similar symptoms. Patient saw his primary care physician and june was prescribed as azalastine and erythromycin for 1 week however continue to use that for 4 weeks. He was then seen in the ER on July 25 due to increased redness, burning sensation to his eyes. He had labs as well as a CT orbit due to concern for periorbital or orbital cellulitis. The CT showed findings with a possible inflammatory process such as Sjogren's versus sarcoidosis. It was thought that patient was having a rebound reaction from the medications, and was prescribed a 5 day course of prednisone. He was advised to stop the erythromycin as a lasting eyedrops. He was given a referral to Ophthalmology. He took the prednisone that he was given which provided with some relief up until 2 days ago. He states that over the last 2 days he has had worsening swelling to his bilateral eyes. He states that his symptoms did improve with prednisone. He states that this morning he noticed some crusting eye drainage from his left eye with itchiness. No eye pain. No changes in vision. No fevers, chills, chest pain, shortness of breath, abdominal pain, nausea, vomiting or diarrhea. MD complaint: Bilateral eye swelling Onset (ago): day(s) Radiation: non-radiation Relieving factors: none Exacerbating factors: none Associated symptoms: denies other symptoms Treatments prior to arrival: none Related Data Previous Rx's ?Medication ?Instructions ?Recorded cyclobenzaprine 10 mg tablet 10 mg PO TID PRN muscle spasm #15 05/26/23 tabs lidocaine 5 % topical patch 1 patch topical DAILY #15 ea 05/26/23 (Lidoderm) cyclobenzaprine 10 mg tablet 10 mg PO TID PRN muscle spasm #10 07/09/23 tabs ibuprofen 600 mg tablet 600 mg PO Q8H PRN pain #14 tabs 07/09/23 lidocaine 5 % topical patch 1 patch topical DAILY #15 ea 07/09/23 prednisone 20 mg tablet 20 mg PO DAILY 5 days #5 tabs 07/26/23 cefuroxime axetil 500 mg tablet 500 mg PO BID 10 days #20 tabs 08/05/23 erythromycin 5 mg/gram (0.5 %) eye 0.5 inch ophthalmic (eye) QID 7 08/05/23 ointment days #3.5 grams Allergies Allergy/AdvReac Type Severity Reaction Status Date / Time No Known Allergies Allergy Verified 08/05/23 10:19 Review of Systems 2 Review of Systems: Yes all other systems are reviewed and are negative Constitutional: Constitutional: Reports as per [facility] Social History Social History Advance Directives: No Advance Directives Information Provided: Yes Do you have a plan to hurt others: No Plan Physical Exam ED Vital Signs: Vital Signs - 24 hr 08/05/23 10:15 08/05/23 11:40 Temperature 98.5 F 98.5 F Pulse Rate 93 93 Respiratory Rate 18 18 Blood Pressure 143/86 H 143/86 H Pulse Oximetry 98 98 Oxygen Delivery Method Room Air Room Air BMI result Body Mass Index 48.0 Const General: cooperative, comfortable and no acute distress Orientation/consciousness: patient oriented x3 Limitations: no limitations [facility] Head: Yes normal to inspection, Yes normocephalic and Yes atraumatic Ears: hearing grossly normal bilaterally General nose exam: Normal external nose present Face and sinus: Yes normal facial exam Mouth: Normal oral and palatal mucosa present, oropharynx normal and moist mucous membranes Throat: Yes posterior oropharynx normal Eyes Other: periorbital edema noted to the upper eyelid. Left eye conjunctiva is injected. Yellow crusting noted to bilateral eyes. No pain with extraocular movements. PERRLA, EOMI General: appearance normal, both eyes and all related structures Sclerae: sclerae normal Pupils: Equal, round and reactive pupils present EOM: EOMs intact bilaterally Neck Neck: Yes normal visual inspection, Yes full ROM and Yes no lymphadenopathy Lymphatic: no lymphadenopathy noted Chest Chest palpation & inspection: normal inspection of the chest Resp Effort & Inspection: normal respiratory effort and able to speak in complete sentences Auscultation: clear to auscultation bilaterally, no crackles, no rales, no rhonchi and no wheezes Cardio Rate: regular rate Rhythm: regular rhythm Heart sounds: S1 normal heart sound present and S2 normal heart sound present GI Inspection: Yes normal to inspection Skin General skin exam: no rashes or lesions noted Trauma: no lacerations or abrasions Wounds: no wounds Neuro General: patient oriented x3 and moves all extremities Cranial nerves: Yes Equal, round and reactive pupils present Extrem General: Yes normal to inspection Right upper extremity: normal to inspection Left upper extremity: normal to inspection Right lower extremity: normal to inspection Left lower extremity: normal to inspection Medical Decision Making Medical Decision Making MDM Narrative: This is a 58-year-old male, with a past medical history of hypertension, type 2 diabetes, and GERD, who presents to the emergency department with complaints of bilateral eye swelling. On arrival, patient mildly hypertensive at 143/86, all other vital signs within normal limits. Review of previous records/picture show worsening upper eyelid swelling. Left conjunctiva is injected with discharge noted. This appears to be infectious in etiology. He had a full workup at his last visit on 07/25, CT scan concerning for rheumatologic problem including Sjogren's. He has not followed up with Ophthalmology or Rheumatology. Patient has no pain with extraocular movements to suggest orbital cellulitis. eye pressures is normal bilaterally - OD = 8mmHg, OS = 12mmHg today. Patient did have some relief with prednisone however patient's symptoms now presents infectious in etiology, will treat with oral and topical antibiotics. Given strict return precautions. Also given referral to Rheumatology and Ophthalmology. Advised to follow-up, call tomorrow to make an appointment. Given strict return precautions. He understands and agrees with plan. Differential Diagnosis Differential Diagnoses: The differential diagnosis associated with the presentation includes Orbital cellulitis, periorbital cellulitis, conjunctivitis, glaucoma Admission/Observation Consideration of admission/observation: Escalation of care including admission/observation considered Escalation of care including admission/observation considered however given workup today not warranted at this time. Discharge Plan Discharge Clinical Impression: Preseptal cellulitis Patient Disposition: Home, Self-Care Instructions: Periorbital Cellulitis in Adults (ED) Additional Instructions: Your seen in the emergency department due to bilateral eye swelling. Your eyes are infected therefore I am putting you on antibiotics. I am putting you on topical as well as oral antibiotics. Please finish the entire course even if you are feeling better. You need to follow-up with the safety compliance specialist. I am also giving your referral to Rheumatology due to findings on your CT scan that was performed last week. Please call to make an appointment. If any new or worsening symptoms occur including but not limited to changes to your vision, or eye pain, please return for re-evaluation. Prescriptions: New erythromycin 5 mg/gram (0.5 %) ointment 0.5 inch ophthalmic (eye) QID 7 Days Qty: 3.5 0RF cefuroxime axetil 500 mg tablet 500 mg PO BID 10 Days Qty: 20 0RF No Action cyclobenzaprine 10 mg tablet 10 mg PO TID PRN (Reason: muscle spasm) Qty: 15 0RF lidocaine [Lidoderm] 5 % adhesive patch,medicated 1 patch topical DAILY Qty: 15 0RF Rx Instructions: leave on most painful area for up to 12 hrs cyclobenzaprine 10 mg tablet 10 mg PO TID PRN (Reason: muscle spasm) Qty: 10 0RF ibuprofen 600 mg tablet 600 mg PO Q8H PRN (Reason: pain) Qty: 14 0RF lidocaine 5 % adhesive patch,medicated 1 patch topical DAILY Qty: 15 0RF Rx Instructions: leave on most painful area for up to 12 hrs prednisone 20 mg tablet 20 mg PO DAILY 5 Days Qty: 5 0RF Interventions: ED Discharge Assessment Last Done: 08/05/23 11:40 Discharge Date/Time: 08/05/23 11:41 Print Language: Hungarian
[2023-08-05 11:40] VITALS: BP 143/86; PULSE 93; RESP 18; TEMP 36.9; O2SAT 98
== END 2023-08-05 11:41 | disposition home or self-care (01) ==
PROVIDERS: Emergency Provider Emergency Medicine; PCP Internal Medicine
DX: L03.213 Periorbital cellulitis (principal); Z79.899 Other long term (current) drug therapy
CPT/HCPCS: 99282; 99283

== ENCOUNTER 2024-02-26 12:12 | Outpatient (AMB) | payer MEDICARE, MEDICAID, SELFPAY ==
[2024-02-26 12:44] VITALS: BP 122/84; PULSE 98; TEMP 36.8; O2SAT 94; BMI 45.5
--- NOTE | 2024-02-26 12:44 | MHC.OFFWIV ---
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 Allergies No Known Allergies Allergy (Verified 02/26/24 12:48) HPI HPI Comments History of Present Illness Details History of Present Illness - The patient is a 59-year-old male presenting with left sided facial swelling. - Swelling initiated as an itch one month ago, now hard and painful. - Accompanied by dental complications, including pain under a left upper molar. - Past CAT scan in July 2023 was unrelated to the current issue. - Last dentist 5 years ago, does not currently have a dentist. -Denies sob or trouble swallowing - Chronic conditions include diabetes and eczema; potential contributing factors involve occupational history in a cold environment. - The patient experiences sleep disruption due to discomfort from the swelling and has considered Benadryl for sleep. Physical Exam General: Cooperative, healthy appearing, comfortable, no acute distress and well developed Orientation: Patient oriented x3 Limitations: No limitations Head: Edema noted on the face, particularly below the left eye, ptosis of left eye Ears: Hearing grossly normal bilaterally Nose: Normal external nose present Face and sinus: right sided facial swelling, indurated, no warmth. Mouth: many missing teeth, no obvious abscess noted on left side Eyes: Appearance normal, both eyes and all related structures Neck: Normal visual inspection and Yes full ROM Respiratory: Normal respiratory effort and able to speak in complete sentences. Skin: No rashes or lesions noted Neuro: Patient oriented x3 Extremities: Normal to inspection Review of Systems Const All systems reviewed & are unremarkable except as noted in HPI and below Physical Exam Vital Signs: Last Vital Signs Temp 98.2 F 02/26/24 12:44 Pulse 98 02/26/24 12:44 BP 122/84 02/26/24 12:44 Pulse Ox 94 02/26/24 12:44 Oxygen Delivery Method Room Air 02/26/24 12:44 BMI result Body Mass Index 45.5 Assessment & Plan Assessment & Plan (1) Swelling of right side of face: Code(s): R22.0 - Localized swelling, mass and lump, head Plan: Considering the patient's acute presentation, significant facial swelling, and associated dental pain, a CT scan is recommended to identify any underlying infection or alternate pathology. Unclear if this is an abscess (not obvious on exam) vs other growth. Additionally, laboratory analysis and other pertinent diagnostic/imaging work should be expedited to clarify the etiology and assist in comprehensive management. The patient was advised to utilize Benadryl for sleep support. Patine will go to the emergency department tomorrow morning to address the progressive swelling and its implications effectively. Patient was informed and verbally consented to the use of an ambient scribe for clinic note documentation during this visit. Coding Level of Care Code New Pt Level 3 (77462) Diagnoses Swelling of right side of face R22.0
== END 2024-02-26 14:20 | disposition home or self-care (01) ==
PROVIDERS: PCP Internal Medicine; Visit Provider Physician Assistant
DX: R22.0 Localized swelling, mass and lump, head (principal)

== ENCOUNTER → 2024-02-26 12:12 | Outpatient (BNVA) | payer MEDICARE, MEDICAID, SELFPAY | PROVIDERS: PCP Internal Medicine; Visit Provider Physician Assistant | DX: R22.0 Localized swelling, mass and lump, head (principal) | CPT/HCPCS: 99202 ==